=== PATIENT | male | born 1995 | race Caucasian/White ===

== ENCOUNTER → 2019-01-07 | Outpatient (CLI) | payer BC ==
--- NOTE | 2019-01-07 18:11 | Diagnostic Imaging Report ---
MRI SPINE LUMBAR WO HISTORY: Low back pain, lumbar radiculopathy COMPARISON: None. TECHNIQUE: Sagittal T1, sagittal T2, sagittal STIR, axial T2, coronal T2, and axial proton density weighted images of the lumbar spine were obtained without contrast. DISCUSSION: Number of non-rib bearing lumbar vertebral bodies: 5. Alignment: Normal lordosis. No scoliosis. Vertebrae: No fractures, infection or neoplasm. Conus medullaris: Normal, ends at L1. Cauda equina: No masses or arachnoiditis. Posterior paraspinal muscles: Well preserved. No signal abnormalities. Soft tissues: No signal abnormalities. Minimal multilevel disc degeneration is most prominent at L5-S1. This is superimposed on a congenitally narrow lumbar spinal canal. T11-T12: Minimal disc bulge without significant canal or foraminal stenosis. T12-L1: Patent canal and foramina. L1-L2: Patent canal and foramina. L2-L3: Mild canal stenosis due to disc bulge and ligamentum flavum thickening. No significant foraminal stenosis. L3-L4: Mild canal stenosis due to disc bulge and ligamentum flavum thickening. No significant foraminal stenosis. L4-L5: Minimal disc bulge without significant canal or foraminal stenosis. L5-S1: Moderate right foraminal stenosis due to 6 mm right foraminal disc protrusion with associated annular fissure. No significant canal or left foraminal stenosis. IMPRESSION: 1. Minimal multilevel disc degeneration, most prominent at L5-S1, superimposed on a congenitally narrow lumbar spinal canal. 2. Moderate right L5-S1 foraminal stenosis due to 6 mm right foraminal disc protrusion with associated annular fissure. 3. 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 Signed by: Dr. Gurpreet Villatoro M.D. on 01/07/2019 6:08 PM
== END ==
LOC: MRI 16:46
PROVIDERS: ATTEND Internal Medicine
DX: M54.5 Low back pain (principal); M54.16 Radiculopathy, lumbar region
CPT/HCPCS: 72148